=== PATIENT | female | born 1960 | race Caucasian/White ===

== ENCOUNTER 2016-07-27 13:00 | Emergency (ER) | payer SELFPAY ==
[~2016-07-27] VITALS: Ht 154.9 cm; Wt 58.7 kg
[~2016-07-27 13:00] MED LIST: ATOR20TA9 PO; LEVO100C2; LEVO100T5 PO; LEVO150T PO; LISI-167; LISI-167 PO; METH40TA3 PO
[2016-07-27 13:01] VITALS: BP 193/114
[2016-07-27] MEDS ORDERED: SODIUM CHLORIDE 0.9% 1,000ML IVBOLUS ONE (14:00)
[2016-07-27] MEDS ORDERED: ACETAMINOPHEN 325 MG TABLET PO ONE (14:00)
== END 2016-07-27 14:49 | disposition left against medical advice (07) ==
LOC: ED 14:12
DX: R10.9 Unspecified abdominal pain (principal); R20.0 Anesthesia of skin; Z53.21 Procedure and treatment not carried out due to patient leaving prior to being seen by health care provider

== ENCOUNTER 2017-01-13 12:44 | Emergency (ER) | payer MEDICAID ==
[~2017-01-13] VITALS: Ht 157.5 cm; Wt 59.0 kg
[2017-01-13 12:46] VITALS: BP 166/100
[2017-01-13] MEDS ORDERED: METHOCARBAMOL 750 MG TABLET PO ONE (13:30)
[2017-01-13] MEDS ORDERED: KETOROLAC 30 MG/1 ML IM ONE (13:30)
[2017-01-13] MEDS ORDERED: METHOCARBAMOL 750 MG TABLET ONE (13:37)
[2017-01-13] MEDS ORDERED: KETOROLAC 30 MG/1 ML ONE (13:37)
[2017-01-13] MEDS ORDERED: LEVO112T4 PO (14:14)
== END 2017-01-13 14:30 | disposition home or self-care (01) ==
LOC: ED 14:00
DX: M48.56XA Collapsed vertebra, not elsewhere classified, lumbar region, initial encounter for fracture (principal); M54.5 Low back pain; G89.29 Other chronic pain; I10 Essential (primary) hypertension
CPT/HCPCS: 72110; 96372; 99284; J1885

== ENCOUNTER 2017-01-28 01:10 | Emergency (ER) | payer MEDICAID ==
[~2017-01-28 01:10] MED LIST changes: +LEVO112T4 PO
[2017-01-28] MEDS ORDERED: SODIUM CHLORIDE 0.9% 1,000ML IVBOLUS ONE (02:00)
[2017-01-28 02:53] LABS: ASPARTATE AMINO TRANSFERASE 27 U/L (15-37); BLOOD UREA NITROGEN 20 mg/dL (7-18)
[2017-01-28 03:36] VITALS: BP 151/100
[2017-01-28] MEDS ORDERED: OMNIPAQUE 350 MG/ML, 100ML BOTTLE ONE (03:40)
[2017-01-28 03:50] LABS: HEMATOCRIT 34.3 % (34.6-47.8); HEMOGLOBIN 11.5 g/dL (11.7-16.4); WHITE BLOOD COUNT 8.2 x10^3/uL (3.4-10)
[2017-01-28] MEDS ORDERED: METHYLNALTREXONE 12 MG/0.6 ML SQ ONE (05:00)
== END 2017-01-28 05:34 | disposition home or self-care (01) ==
LOC: ED 02:52
DX: K59.00 Constipation, unspecified (principal); R10.31 Right lower quadrant pain; R10.32 Left lower quadrant pain; I10 Essential (primary) hypertension; Z90.710 Acquired absence of both cervix and uterus; F17.210 Nicotine dependence, cigarettes, uncomplicated
CPT/HCPCS: 36415; 74177; 80053; 83690; 85025; 96360; 96361; 99285; J7030; Q9967

== ENCOUNTER 2017-07-16 13:33 | Emergency (ER) | payer MEDICAID ==
[~2017-07-16] VITALS: Ht 154.9 cm; Wt 62.4 kg
[~2017-07-16 13:33] MED LIST changes: +LISI2.5T PO
[2017-07-16 13:35] VITALS: BP 126/80
[2017-07-16 14:23] LABS: BASOPHILS # (AUTO) 0.01 x10^3/uL (0-0.1); BASOPHILS % (AUTO) 0 % (0-1); EOSINOPHILS # (AUTO) 0.27 x10^3/uL (0-0.4); EOSINOPHILS % (AUTO) 4 % (1-7); LYMPHOCYTES # (AUTO) 2.24 x10^3/uL (1-3.4); LYMPHOCYTES % (AUTO) 33 % (22-44); MD NO; MEAN CORPUSCULAR HGB CONC 33.8 g/dL (32.4-35.8); MEAN CORPUSCULAR VOLUME 88.8 fL (80-100); MONOCYTES # (AUTO) 0.43 x10^3/uL (0.2-0.8); MONOCYTES % (AUTO) 6 % (2-9); NEUTROPHILS # (AUTO) 3.94 x10^3/uL (1.8-6.8); NEUTROPHILS % (AUTO) 57 % (42-75); PLATELET COUNT 221 x10^3/uL (130-400); RED BLOOD COUNT 4.17 x10^6/uL (3.82-5.3); RED CELL DISTRIBUTION WIDTH 13.3 % (9.6-15.2)
[2017-07-16 14:33] LABS: ALANINE AMINOTRANSFERASE 42 U/L (12-78); ALBUMIN 3.5 g/dL (3.4-5.0); ANION GAP 4 mmol/L (5-15); CALCIUM 9.3 mg/dL (8.5-10.1); CHLORIDE 106 mmol/L (98-107)
[2017-07-16 14:36] LABS: ALKALINE PHOSPHATASE 106 U/L (45-117); BILIRUBIN,TOTAL 0.4 mg/dL (0.2-1.0); TOTAL PROTEIN 7.4 g/dL (6.4-8.2)
[2017-07-16 14:43] LABS: MICROSCOPIC INDICATED
[2017-07-16 14:44] LABS: CULTURE INDICATED? YES
== END 2017-07-16 17:22 | disposition home or self-care (01) ==
LOC: ED 17:15
DX: K64.4 Residual hemorrhoidal skin tags (principal); K59.00 Constipation, unspecified; I10 Essential (primary) hypertension; E03.9 Hypothyroidism, unspecified; R82.99 Other abnormal findings in urine
CPT/HCPCS: 36415; 74021; 80053; 81001; 85025; 87086; 99285

== ENCOUNTER 2018-12-18 04:43 | Emergency (ER) | payer MEDICAID ==
[~2018-12-18] VITALS: Ht 157.5 cm; Wt 63.0 kg
[2018-12-18 04:48] VITALS: BP 133/76
== END 2018-12-18 06:04 | disposition home or self-care (01) ==
LOC: ED 05:53
DX: S46.911A Strain of unspecified muscle, fascia and tendon at shoulder and upper arm level, right arm, initial encounter (principal); R07.89 Other chest pain; I10 Essential (primary) hypertension; F17.200 Nicotine dependence, unspecified, uncomplicated; X58.XXXA Exposure to other specified factors, initial encounter; Y93.89 Activity, other specified; Y92.69 Other specified industrial and construction area as the place of occurrence of the external cause; Y99.8 Other external cause status
CPT/HCPCS: 93005; 96372; 99283; J1885